=== PATIENT | female | born 1995 | race Caucasian/White ===

== ENCOUNTER 2017-10-30 17:39 | Emergency (ER) | payer OTHER ==
[~2017-10-30] VITALS: Ht 182.9 cm; Wt 102.1 kg
[2017-10-30] MEDS ORDERED: DOCUSATE 50 MG/5 ML ORAL SOL OT ONE (19:00)
[2017-10-30] MEDS ORDERED: SODIUM CHLORIDE FLUSH 10ML SYR IVF ONE (19:00)
[2017-10-30] MEDS ORDERED: SODIUM CHLORIDE 0.9% 1,000ML IVBOLUS ONE (19:00)
[2017-10-30] MEDS ORDERED: DOCUSATE 50 MG/5 ML ORAL SOL ONE (19:04)
[2017-10-30 19:14] LABS: BASOPHILS # (AUTO) 0.02 x10^3/uL (0-0.1); BASOPHILS % (AUTO) 0 % (0-1); EOSINOPHILS # (AUTO) 0.04 x10^3/uL (0-0.4); EOSINOPHILS % (AUTO) 1 % (1-7); LYMPHOCYTES # (AUTO) 2.17 x10^3/uL (1-3.4); LYMPHOCYTES % (AUTO) 38 % (22-44); MD NO; MEAN CORPUSCULAR HEMOGLOBIN 28.5 pg (27.0-34.8); MEAN CORPUSCULAR HGB CONC 33.6 g/dL (32.4-35.8); MEAN CORPUSCULAR VOLUME 84.9 fL (80-100); MEAN PLATELET VOLUME 7.1 fL (7.4-10.4); MONOCYTES # (AUTO) 0.49 x10^3/uL (0.2-0.8); MONOCYTES % (AUTO) 9 % (2-9); NEUTROPHILS % (AUTO) 52 % (42-75); PLATELET COUNT 300 x10^3/uL (130-400); RED BLOOD COUNT 5.11 x10^6/uL (3.82-5.3)
[2017-10-30 19:21] LABS: ALBUMIN 4.1 g/dL (3.4-5.0); CHLORIDE 107 mmol/L (98-107)
[2017-10-30 19:33] LABS: ANION GAP 9 mmol/L (5-15)
[2017-10-30 19:49] VITALS: BP 146/66
== END 2017-10-30 20:48 | disposition home or self-care (01) ==
LOC: ED 20:42
DX: R55 Syncope and collapse (principal); E86.0 Dehydration; H61.21 Impacted cerumen, right ear
CPT/HCPCS: 36415; 80048; 82040; 85025; 93005; 96360; 99285; J7030